=== PATIENT | male | born 1950 | race Caucasian/White ===

== ENCOUNTER → 2019-06-17 | Outpatient (CLI) | payer MEDICARE, OTHER, SELFPAY | PROVIDERS: Family Provider Nurse Practitioner Family; Visit Provider Internal Medicine Cardiovascular Disease | DX: G47.33 Obstructive sleep apnea (adult) (pediatric) (principal) ==

== ENCOUNTER 2019-07-23 13:38 | Outpatient (CLI) | payer MEDICARE, OTHER, SELFPAY ==
--- NOTE | 2019-07-23 13:00 | XR_ITS ---
WS: [id number] CERVICAL SPINE 3 VIEWS HISTORY: neck pain following COMPARISON: None available. C2 retrolisthesis by 2 mm. Moderate disc space narrowing and desiccation at C5-6 and C6-7. No fractur es. Bones are diffusely osteopenic. Mild RIGHT convex curvature the cervical spine. C1 and C2 lateral masses are aligned odontoid is inta ct. Soft tissues are normal. XR/XR cervical spine 3V* [id number] IMPRESSION: 1. Osteopenia with moderate spondylosis at C5-6 and C6-7. 2. No fracture. 3. Mild RIGHT convex curvature cervical spine.
== END 2019-07-23 13:39 | disposition home or self-care (01) ==
LOC: RADWPI 13:45
PROVIDERS: Family Provider Nurse Practitioner Family; PCP Nurse Practitioner Family; Visit Provider Nurse Practitioner Family
DX: M54.2 Cervicalgia (principal); M85.88 Other specified disorders of bone density and structure, other site; M47.812 Spondylosis without myelopathy or radiculopathy, cervical region
CPT/HCPCS: 72040

== ENCOUNTER → 2019-07-29 17:09 | Outpatient (BNVA) | payer MEDICARE, OTHER, SELFPAY | PROVIDERS: Family Provider Nurse Practitioner Family; PCP Nurse Practitioner Family; Visit Provider Internal Medicine Nephrology | DX: N18.9 Chronic kidney disease, unspecified (principal) | CPT/HCPCS: 36415; 80069; 82044; 82306; 82310; 83970 ==

== ENCOUNTER 2019-09-10 10:59 | Outpatient (CLI) | payer MEDICARE, OTHER, SELFPAY ==
--- NOTE | 2019-09-10 11:13 | XR_ITS ---
WS: [id number] Right knee, 3 views, 09/10/2019 Clinical Data: right knee pain Comparison: None. Findings: No fractures or dislocations are seen. The joint spaces are normal. The patella is intact. The soft t issues are unremarkable. XR/XR knee RT 3V* [id number] Impression: Negative right knee.
--- NOTE | 2019-09-10 11:13 | XR_ITS ---
WS: [id number] Lumbar spine, obliques, lateral views in the neutral, flexion and extension position, AP and L5-S1 sp ot films, today Clinical Data: DDD lumbar spine Comparison: Lumbar spine x-ray, 03/22/2009. Findings: No compression fractures are seen. There is minimal disc narrowing at L4-L5.. The transverse processe s and SI joints are normal. There is minimal anterior osteoarthritic spurring from L1 through L5. The oblique films show no spondylolysis. On the flexion and extension views there is no subluxation o r limitation of motion. There are clips in the right upper quadrant from a cholecystectomy. XR/XR lumbar spine 6V w f/e [id number] Impression: 1. Minimal osteoarthritis. 2. Degenerative disc narrowing at L4-L5. 3. No limitation of motion or subluxation on flexion or extension.
--- NOTE | 2019-09-10 11:13 | XR_ITS ---
WS: [id number] Thoracic spine, 2 views, 09/10/2019 Clinical Data: ddd thoracic spine Comparison: Portable chest, 12/11/2015. Findings: There is slight loss of the superior vertebral body height of T11 which may represent an old compress ion fracture. The disc heights are normal. Osteoarthritic change and osteoporosis are present. The left lung shows pleural thickening and fibrot ic change with peripheral calcification which has been seen on old chest x-rays. There are clips in t he right upper quadrant from a cholecystectomy. XR/XR thoracic spine 3V* [id number] Impression: Osteoarthritic arthritis and osteoporosis. Possible old minimal compression fracture of the superior aspect of T11.
--- NOTE | 2019-09-10 11:13 | XR_ITS ---
WS: [id number] Left knee, 3 views, 09/10/2019 Clinical Data: left knee pain and clicking Comparison: Left knee, 12/11/2017. Findings: No fractures or dislocations are seen. There is minimal medial joint compartment narrowing unchanged. The patella is intact. The soft tissues are unremarkable. XR/XR knee LT 3V* [id number] Impression: Minimal medial joint compartment narrowing.
--- NOTE | 2019-09-10 11:13 | XR_ITS ---
WS: [id number] Left elbow, 3 views, 09/10/2019 Clinical Data: pain and swelling left elbow Comparison: None. Findings: No fractures or dislocations are seen. The radial head is normal. The soft tissues are unremarkable. XR/XR elbow LT min 3V* [id number] Impression: Negative left elbow.
== END 2019-09-10 11:00 | disposition home or self-care (01) ==
LOC: RADWPI 11:03
PROVIDERS: Family Provider Nurse Practitioner Family; PCP Nurse Practitioner Family; Visit Provider Nurse Practitioner Family
DX: S83.91XA Sprain of unspecified site of right knee, initial encounter (principal); M22.92 Unspecified disorder of patella, left knee; M70.22 Olecranon bursitis, left elbow; M51.36 Other intervertebral disc degeneration, lumbar region; M51.34 Other intervertebral disc degeneration, thoracic region; X58.XXXA Exposure to other specified factors, initial encounter
CPT/HCPCS: 72072; 72114; 73080; 73562

== ENCOUNTER 2019-09-17 06:00 | Outpatient (RCR) | payer MEDICARE, OTHER, SELFPAY | END 2019-09-21 23:59 | disposition home or self-care (01) | LOC: WPT 06:00 | PROVIDERS: Family Provider Nurse Practitioner Family; PCP Nurse Practitioner Family; Referring Provider Nurse Practitioner Family; Visit Provider Nurse Practitioner Family | DX: M54.9 Dorsalgia, unspecified (principal) | CPT/HCPCS: 97110; 97140; 97162 ==

== ENCOUNTER 2019-09-22 06:00 | Outpatient (RCR) | payer OTHER, MEDICARE, SELFPAY | END 2019-10-21 23:59 | disposition home or self-care (01) | LOC: WPT 06:00 | PROVIDERS: Family Provider Nurse Practitioner Family; PCP Nurse Practitioner Family; Referring Provider Nurse Practitioner Family; Visit Provider Nurse Practitioner Family | DX: M54.9 Dorsalgia, unspecified (principal) | CPT/HCPCS: 97110; 97112; 97140; G0283 ==

== ENCOUNTER 2019-10-18 10:56 | Outpatient (CLI) | payer MEDICARE, OTHER, SELFPAY ==
[2019-10-18 11:30] LABS: Blood Urea Nitrogen 21 mg/dL (8-23)
--- NOTE | 2019-10-18 11:30 | CT_ITS ---
WS: [id number] CT CHEST TECHNIQUE: Contrast enhanced CT of the chest with coronal and sagittal reformatted images. CLINICAL INFORMATION: lung nodule COMPARISON: CT chest 08/16/2016 and 12/16/2015 DLP: 958.[address] scans at [facility] use at least one of these dose optimization techniques: automat ed exposure control; mA and/or kV adjustment per patient size (includes targeted exams where dose is matched to clinical indication); or iterative reconstruction. FINDINGS: Persistent volume loss in the left upper lobe with pleural thickening and peripheral fluid. Traction bronchiectasis within the left upper lobe with honeycombing and fibrotic change is stable. Pleural pl aques within the left posterior pleura. Fibrosis within the right lung apex. Stable noncalcified grou ndglass pulmonary opacities within the right lung unchanged from previous. Largest measures approxima tely 8 mm. 8 mm subpleural opacity right lower lobe anteriorly. Small amount of pleural thickening along the rig ht horizontal fissure. Persistent Mediastinal shift with volume loss in the left lung is unchanged. Normal caliber ascending aorta. Proximal pulmonary arteries are normal. No mediastinal or hilar lymphadenopathy. Mild bilater al renal cortical atrophy. Spleen is normal. Liver is normal in appearance. Cholecystectomy. This is new from previous. Normal caliber upper abdominal aorta. Normal visualized bony structures. CT/CT chest w con* [id number] IMPRESSION: 1. No significant interval changes from previous. 2. Persistent volume loss left lung with pleural thickening and a small amount of pleural fluid in the left upper lung. 3. Stable pleural plaques left lung. 4. No mediastinal or hilar lymphadenopathy. 5. A few small hazy groundglass pulmonary opacities right lung stable from pre vious the largest measuring 8 mm. Recommend 12 month follow-up. 6. Interval cholecystectomy.
[2019-10-18] MEDS: iodixanol 320 mg/mL 100mL Btl IV (11:44)
== END 2019-10-18 10:57 | disposition home or self-care (01) ==
LOC: RADWPI 11:01
PROVIDERS: Family Provider Nurse Practitioner Family; PCP Nurse Practitioner Family; Visit Provider Nurse Practitioner Family
DX: R91.1 Solitary pulmonary nodule (principal)
CPT/HCPCS: 71260; 82565; 84520; Q9967

== ENCOUNTER 2019-10-22 06:00 | Outpatient (RCR) | payer OTHER, MEDICARE, SELFPAY | END 2019-11-21 23:59 | disposition home or self-care (01) | LOC: WPT 06:00 | PROVIDERS: PCP Nurse Practitioner Family; Referring Provider Nurse Practitioner Family; Visit Provider Nurse Practitioner Family | DX: M54.5 Low back pain (principal) | CPT/HCPCS: 97110; 97112; 97163 ==

== ENCOUNTER → 2020-04-28 11:07 | Outpatient (BNVA) | payer MEDICARE, OTHER, SELFPAY | PROVIDERS: PCP Nurse Practitioner Family; Visit Provider Nurse Practitioner Family | DX: M77.42 Metatarsalgia, left foot (principal); M89.472 Other hypertrophic osteoarthropathy, left ankle and foot | CPT/HCPCS: 73630 ==

== ENCOUNTER → 2020-08-14 09:03 | Outpatient (BNVA) | payer MEDICARE, OTHER, SELFPAY | PROVIDERS: PCP Nurse Practitioner Family; Visit Provider Nurse Practitioner Family | DX: N18.30 Chronic kidney disease, stage 3 unspecified (principal) | CPT/HCPCS: 80069; 82043; 82306; 82310; 83970; 85025 ==

== ENCOUNTER 2020-09-05 11:04 | Outpatient (CLI) | payer MEDICARE, OTHER, SELFPAY ==
--- NOTE | 2020-09-05 11:24 | MR_ITS ---
WS: [id number] MRI HEAD WITH CONTRAST TECHNIQUE: Sagittal T1, T2 axial, T2 axial FLAIR, axial susceptibility weighted imaging, axial diffus ion weighted images, and coronal T2 images were obtained. Pre and post-T1 axial and post T1 coronal i mages. ADC and FSPGR images. CLINICAL INFORMATION: R41.3 - Other amnesia COMPARISON: None. FINDINGS: No evidence of restricted diffusion to suggest acute ischemia. Ventricular system and basal cisterns are patent. Mild small vessel changes. Moderate parenchymal volume loss. Small vessel changes in the paco. Normal posterior fossa. Normal vascular flow voids at the skull base. Tiny chronic lacunar infa rct right cerebellum. Mild mucosal thickening in the paranasal sinuses. Mastoid air cells are well aerated. Normal optic ch iasm and pituitary infundibulum. Normal cavernous sinuses and Meckel's cave. Moderate symmetric atrop hy involving the temporal lobes and hippocampal formations. No hemosiderin on susceptibly weighted im ages. No abnormal gadolinium enhancement. Normal dural venous sinuses. MR/MR head wo/w con [id number] IMPRESSION: 1. No evidence of restricted diffusion to suggest acute ischemia. 2. Mild small vessel changes. Moderate parenchymal volume loss. 3. Moderate symmetric atrophy temporal lobes and hippocampal formations. 4. No abnormal gadolinium enhancement. 5. No hemosiderin on the susceptibility weighted images. 6. No other significant findings.
[2020-09-05] MEDS: gadobenate dimeglumine 20 mL vial IV (12:35)
== END 2020-09-05 11:05 | disposition home or self-care (01) ==
LOC: RADWPI 11:06
PROVIDERS: PCP Nurse Practitioner Family; Visit Provider Nurse Practitioner Family
DX: R41.3 Other amnesia (principal); G31.9 Degenerative disease of nervous system, unspecified
CPT/HCPCS: 70553; A9577

== ENCOUNTER → 2021-01-04 09:42 | Outpatient (BNVA) | payer MEDICARE, OTHER, SELFPAY | PROVIDERS: PCP Nurse Practitioner Family; Visit Provider Nurse Practitioner Family | DX: R30.0 Dysuria (principal); N39.0 Urinary tract infection, site not specified | CPT/HCPCS: 81000; 87077; 87086; 87184 ==

== ENCOUNTER → 2021-01-09 00:01 | Outpatient (BNVA) | payer MEDICARE, OTHER, SELFPAY | PROVIDERS: PCP Nurse Practitioner Family; Visit Provider Nurse Practitioner Family | DX: R90.89 Other abnormal findings on diagnostic imaging of central nervous system (principal); Z12.5 Encounter for screening for malignant neoplasm of prostate; I10 Essential (primary) hypertension; R79.89 Other specified abnormal findings of blood chemistry; E55.9 Vitamin D deficiency, unspecified; Z13.6 Encounter for screening for cardiovascular disorders; N30.00 Acute cystitis without hematuria; Z79.899 Other long term (current) drug therapy | CPT/HCPCS: 80053; 80061; 82043; 82306; 83036; 84443; 85025; G0103 ==

== ENCOUNTER → 2021-08-23 11:02 | Outpatient (BNVA) | payer MEDICARE, SELFPAY | PROVIDERS: PCP Nurse Practitioner Family; Visit Provider Internal Medicine Nephrology | DX: N18.2 Chronic kidney disease, stage 2 (mild) (principal); E55.9 Vitamin D deficiency, unspecified | CPT/HCPCS: 80069; 82043; 82306; 82310; 83970; 85007; 85027 ==

== ENCOUNTER → 2021-09-06 14:06 | Outpatient (BNVA) | payer MEDICARE, OTHER, SELFPAY | PROVIDERS: PCP Nurse Practitioner Family; Visit Provider Nurse Practitioner Family | DX: R06.02 Shortness of breath (principal); R06.2 Wheezing; J92.9 Pleural plaque without asbestos | CPT/HCPCS: 71046 ==

== ENCOUNTER → 2021-09-28 11:12 | Outpatient (BNVA) | payer MEDICARE, OTHER, SELFPAY | PROVIDERS: PCP Nurse Practitioner Family; Visit Provider Internal Medicine Critical Care Medicine | DX: J18.9 Pneumonia, unspecified organism (principal); J96.11 Chronic respiratory failure with hypoxia; J45.909 Unspecified asthma, uncomplicated; J84.10 Pulmonary fibrosis, unspecified; R91.1 Solitary pulmonary nodule; I10 Essential (primary) hypertension | CPT/HCPCS: 99204 ==

== ENCOUNTER → 2021-11-14 09:59 | Outpatient (BNVA) | payer MEDICARE, OTHER, SELFPAY | PROVIDERS: PCP Nurse Practitioner Family; Visit Provider Internal Medicine Cardiovascular Disease | DX: I48.20 Chronic atrial fibrillation, unspecified (principal); I10 Essential (primary) hypertension; Z79.01 Long term (current) use of anticoagulants; J96.11 Chronic respiratory failure with hypoxia | CPT/HCPCS: 99214 ==

== ENCOUNTER → 2021-11-29 09:11 | Outpatient (BNVA) | payer MEDICARE, OTHER, SELFPAY | PROVIDERS: PCP Nurse Practitioner Family; Visit Provider Internal Medicine Critical Care Medicine | DX: J18.9 Pneumonia, unspecified organism (principal); J84.10 Pulmonary fibrosis, unspecified; J45.909 Unspecified asthma, uncomplicated; J96.11 Chronic respiratory failure with hypoxia; R91.1 Solitary pulmonary nodule; I10 Essential (primary) hypertension; Z99.81 Dependence on supplemental oxygen | CPT/HCPCS: 99214 ==